=== PATIENT | male | born 1965 | race African-American/Black ===

== ENCOUNTER 2018-01-29 20:27 | Inpatient (IN) | payer SELFPAY ==
[~2018-01-29 20:27] MED LIST: ISOVUE-370 76%-LOCM 1 ML ONE
[2018-01-29 20:44] LABS: #Basophils 0.1 thou/uL (0.0-0.2); #Eosinphils 0.3 thou/uL (0.0-0.7); #Lymphocytes 4.2 thou/uL (1.20-3.40); #Monocytes 0.6 thou/uL (0.11-0.59); %Basophils 0.9 % (0.0-1.0); %Eosinophils 2.8 % (0.0-10.0); %Lymphocytes 45.8 % (21.0-51.0); %Monocytes 6.9 % (0.0-10.0); %Neutrophils 43.6 % (42.0-75.0); Hemoglobin 12.9 g/dL (14.0-18.0); Mean Corpuscular HGB CONC 32.5 g/dL (32.0-36.0); Mean Corpuscular Hemoglobin 28.1 pg (27.0-31.0); Mean Corpuscular Volume 86.5 fl (80.0-94.0); Mean Platelet Volume 7.8 fL (7.4-10.4); Platelet Count 322 thou/uL (130-400); Red Blood Cell (RBC) Count 4.58 mill/uL (4.70-6.10); White Blood Cell (WBC) Count 9.1 thou/uL (4.8-10.8)
[2018-01-29 20:50] LABS: INR-International Normal Ratio 1.1; PTT 26.3 SEC (22.9-36.1); Prothrombin Time 14.6 SEC (12.0-14.7)
[2018-01-29 20:58] LABS: ALT (SGPT) 19 U/L (8-55); AST (SGOT) 26 U/L (5-34); Albumin 3.9 g/dL (3.5-5.0); Alcohol 18 mg/dL (Less than 10); Alkaline Phosphatase 78 U/L (40-150); Anion Gap 14 mmol/L (10-20); BUN (Urea Nitrogen) 13 mg/dL (8.9-20.6); Bilirubin, Total 0.5 mg/dL (0.2-1.2); Calc. Creatinine Clearance 0 mL/min (70-130); Calcium 9.1 mg/dL (7.8-10.44); Carbon Dioxide 21 mmol/L (22-29); Chloride 113 mmol/L (98-107); Estimated GFR-MDRD 58; Globulin 3.4 g/dL (2.4-3.5); Glucose 134 mg/dL (70-105); Lipase 49 U/L (8-78); Potassium 3.1 mmol/L (3.5-5.1); Protein, Total 7.3 g/dL (6.0-8.3); Sodium 145 mmol/L (136-145)
[2018-01-29 21:03] LABS: CKMB 1.6 ng/mL (0-6.6); Troponin I Less than 0.010 ng/mL (< 0.028)
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
[2018-01-29] MEDS ORDERED: Dextrose 50% Abboject 50 ML SYRINGE SLOW IVP PRN ×2 (21:50→22:37)
[2018-01-29] MEDS ORDERED: hydrALAZINE 20 MG/ML VIAL SLOW IVP PRN (21:50)
[2018-01-29] MEDS ORDERED: Ondansetron ODT 4 MG TAB PO PRN (21:50)
[2018-01-29] MEDS ORDERED: Ondansetron HCl/PF 4 MG/2 ML Vial IVP PRN (21:50)
[2018-01-29] MEDS ORDERED: Dextrose 5% in Water 1,000 ML IV PRN ×2 (21:50→22:37)
[2018-01-29] MEDS ORDERED: traMADol HCl 50 MG TAB PO PRN (22:59)
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
[2018-01-29] MEDS ORDERED: Acetaminophen 500 MG TAB ONE (23:04)
[2018-01-29] MEDS ORDERED: Fentanyl 100 MCG/2 ML VIAL ONE (23:04)
[2018-01-30 00:35] LABS: Bilirubin Negative (Negative); Blood, Urine Negative (Negative); Clarity CLEAR (Clear); Glucose, Urine (Dipstick) Negative (Negative); Leukocyte Negative (Negative); Nitrite Negative (Negative); Protein, Urine (Dipstick) Negative (Neg-Trace); pH, Urine 7.5 (5.0-9.0)
[2018-01-30 00:58] LABS: Amphetamine Not Detected (NotDetected); Barbiturates Screen Not Detected (NotDetected); Benzodiazepine Screen Not Detected (NotDetected); Cocaine Metabolite Screen Not Detected (NotDetected); Medtox Control Line Valid? VALID (VALID); Medtox Reader # READER 4; Methadone Not Detected (NotDetected); Methamphetamine Not Detected (NotDetected); Opiate Screen Not Detected (NotDetected); Oxycodone Screen Not Detected (NotDetected); Phencyclidine (PCP) Not Detected (NotDetected); THC/Cannabinoid Screen Not Detected (NotDetected); Tricyclic Screen Not Detected (NotDetected)
[2018-01-30] MEDS: Acetaminophen 500 MG TAB PO SCH ×3 (01:36→12:08)
[2018-01-30] MEDS: Ketorolac Tromethamine 30 MG/ML VIAL IVP SCH ×3 (01:37→12:07)
[2018-01-30] MEDS: Sodium Chloride 0.9% 1,000 ML IV SCH ×2 (01:39→16:51)
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
[2018-01-30 02:14] VITALS: BMI 26.3
[2018-01-30] MEDS: traMADol HCl 50 MG TAB PO PRN ×2 (03:06→09:01)
[2018-01-30 04:23] LABS: #Monocytes 0.5 thou/uL (0.11-0.59); #Neutrophils 8.6 thou/uL (1.40-6.50); %Basophils 0.3 % (0.0-1.0); %Monocytes 5.1 % (0.0-10.0); %Neutrophils 84.6 % (42.0-75.0); Hemoglobin 12.6 g/dL (14.0-18.0); Mean Corpuscular HGB CONC 32.5 g/dL (32.0-36.0); Mean Corpuscular Volume 86.1 fl (80.0-94.0); Platelet Count 315 thou/uL (130-400); Red Blood Cell (RBC) Count 4.49 mill/uL (4.70-6.10); White Blood Cell (WBC) Count 10.1 thou/uL (4.8-10.8)
[2018-01-30 04:42] LABS: Anion Gap 11 mmol/L (10-20); BUN (Urea Nitrogen) 13 mg/dL (8.9-20.6); Calc. Creatinine Clearance 85 mL/min (70-130); Calcium 9.1 mg/dL (7.8-10.44); Carbon Dioxide 23 mmol/L (22-29); Chloride 112 mmol/L (98-107); Estimated GFR-MDRD 71; Glucose 121 mg/dL (70-105); Phosphorus 2.6 mg/dL (2.3-4.7); Potassium 4.2 mmol/L (3.5-5.1); Sodium 142 mmol/L (136-145)
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
[2018-01-30] MEDS ORDERED: Famotidine/PF 20 mg/2ml Vial SLOW IVP SCH (09:00)
[2018-01-30] MEDS ORDERED: HYDROcodone/Acetaminophen 10/325 mg Tablet PO PRN (14:02)
[2018-01-30] MEDS ORDERED: Gabapentin 300 MG CAP PO SCH (15:00)
[2018-01-30] MEDS ORDERED: Gabapentin 100 MG CAP PO SCH (15:00)
[2018-01-30 16:27] VITALS: BP 161/98; TEMP 97.6
[2018-01-30] MEDS ORDERED: Acetaminophen 325 MG TAB PO SCH (17:00)
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
== END 2018-01-30 16:50 | disposition home or self-care (01) | DRG 552 ==
LOC: ERS 20:27 → SURG A 23:00
PROVIDERS: ADMIT Specialist; ATTEND Specialist
DX: S12.112A Nondisplaced Type II dens fracture, initial encounter for closed fracture (principal); S12.501A Unspecified nondisplaced fracture of sixth cervical vertebra, initial encounter for closed fracture; R40.2413 Glasgow coma scale score 13-15, at hospital admission; S01.01XA Laceration without foreign body of scalp, initial encounter; V43.52XA Car driver injured in collision with other type car in traffic accident, initial encounter; R41.0 Disorientation, unspecified; S06.0X0A Concussion without loss of consciousness, initial encounter
CPT/HCPCS: 36415; 70450; 70498; 71260; 72125; 74177; 80048; 80053; 80306; 80307; 81003; 82553; 83690; 83735; 84100; 84484; 85025; 85610; 85730; 93005; 96374; 99292; G0390; G8978-GP-CI; G8979-GP-CI; G8980-GP-CI; J1885; J3010